=== PATIENT | male | born 1960 | race Caucasian/White ===

== ENCOUNTER 2025-04-18 14:09 | Outpatient (AMB) | payer BC, SELFPAY ==
--- NOTE | 2025-04-18 14:44 | MHC.AMNUTRGE ---
VS Expanded 04/18/25 14:49 04/29/25 14:57 Height 5 ft 10 in 5 ft 10 in Weight 263 lb 263 lb BMI 37.7 37.7 Intake Visit Reasons: T2DM Nutrition Presentation Details: Pt presents for MNT for T2DM Patient reports working on diet modifications for multiple years Patient reports he had gastric bypass surgery around 2001. Patient was 360 lb prior to surgery and with surgery patient reached 180 lb, then gradually regained weight and maintained at 235lb for almost 7 years and now is restarting to gain the weight again to current weight at 263 lb Patient wants to resume working on diet modifications Food frequency Fruits 0-1 a day Dairy 3-4 a day Vegetables for a day Fish 0 per week Beverages: Water, milk, juices Empty calorie foods: + Patient acknowledges increasing on empty calorie foods and also larger portion sizes in addition to keeping sedentary AHW-Elmjrrt-Dt.Jeor Equation Height: 5 ft 10 in Weight: 263 lb Resting Metabolic Rate: 1998.04 Calculated Activity Level: Sedentary Calories Needed to Maintain Weight: 2397.65 Diagnosis Nutrition problem #1: overweight/obesity As related to (etiology) #1: excess energy intake As evidenced by (sign/symptom) #1: high BMI (37.7 BMI in March 2025) Assessment & Plan Assessment & Plan (1) Obesity (BMI 30-39.9): Code(s): E66.9 - Obesity, unspecified Category: Medical Plan: current wt: 120 kg ( 04/23 ) est kcal needs as per MSJ: 2400 est protein needs as per 1 g/kg BW: 120 est fluid needs as per 30 ml/kg BW: 3600 Recommended fiber > 12 g /day and gradually increase up to 25-28 g /day or as tolerated Nutrition topics discussed : Reviewed (R), Pt verbalized understanding (V) , not applicable (N/A) R, : Healthy Plate Method Concept: R, : Carbohydrates: food sources of carbohydrates, relationship of carbohydrates to blood glucose, fatty liver GI health. Recommended total amount of carbohydrates per meals and snack. Differences between simple carbohydrates and complex carbohydrates R, : Lean protein foods including vegan , vegetarian sources of protein. Benefits of protein (including but not limited to healing, nutritional value , benefits in weight loss, glucose control R, : Fats : Source of fats, benefits of fats. Difference between saturated and unsaturated fats. Saturated fats and its contribution to inflammation R, : Fiber: food sources and role of fiber in the diet (including but not limited to its role as a prebiotic, benefits in constipation, role in IBS , role in glucose control and cholesterol level) R, : Hydration: role of hydration and prevention of dehydration or over hydration. Foods and water content. R, V,A: Vitamins and Minerals in foods and supplements R, V, : Interpreting food labels, including serving size, macronutrients, vitamins, minerals, allergens, ingredient list , % daily value Patient Instructions: Reduce total carbohydrate to less than 60 g per meal, 3 meals a day and 0-20 g of carb as a snack up to 3 snacks a day if needed Keep hydrated by choosing low sugar beverages, read food labels Engage in physical activity at least 30 minutes 3 times a week unless otherwise specified by your Dr. Coding Level of Care Code Nutr Indiv Intake (47207) Diagnoses Obesity (BMI 30-39.9) E66.9 Time Spent (min) 30
[2025-04-18 14:49] VITALS: BMI 37.7
--- OUTSIDE RECORDS SUMMARY | 2025-04-18 19:34 | XMS_ITS | Encounter Summary ---
Author Organization [facility] Address [address] [place] [address] Care Team Providers Care Willow Machine Operator Name Role Phone Vinicio Greenfield MD Primary Care Provider [phone] Encounter Details Date Type Department Care Team (Late Contact Info) Description 03/04/2025 Results Follow-Up Internal Medicine - [address] [phone] Nat Hanna MA Social History Tobacco Use Types Packs/Day Years Used Date Smoking Tobacco: Never Smokeless Tobacco: Never Alcohol Use Standard Drinks/Week Comments Yes 0 (1 standard drink = 0.6 oz pur e alcohol) Social use Sex and Gender Information Value Date Recorded Sex Assigned at Not on file Legal Sex Male 9:50 PM EST Gender Identity Not on file Sexual Orientation Not on file documented as of this encounter Plan of Treatment Upcoming Encounters Date Type Department Care Team (Late Contact Info) Description 05/31/2025 12:30 PM EST Office Visit Gastroenterology - [address] [phone] Cris Hager MD [address] [address] documented as of this encounter Visit Diagnoses Not on filedocumented in this encounter Care Teams Willow Machine Operator Relationship Specialty Start Date End Date Vinicio Greenfield MD [address] [place] [phone] PCP - General Internal Medicine 12/09/14 documented as of this encounter
--- OUTSIDE RECORDS SUMMARY | 2025-04-18 19:34 | XMS_ITS ---
Author Name [facility] Organization Unknown Care Team Organization Name Specialty Phone Email Start Date End Da te [facility] Vinicio Greenfield Primary Care 04/06/2022 01/16/20 24
--- OUTSIDE RECORDS SUMMARY | 2025-04-18 19:34 | XMS_ITS | Clinical Summary ---
Author Organization [address] Address [address] [place] [phone] Phone Care Team Providers Care Robot Programmer Name Role Phone Vinicio Greenfield MD Primary Care Provider [phone] Allergies Active Allergy Reactions Criticality Noted Date Comments Aspirin Wheezing 01/01/2015 Other Reaction(s): heart races and eyes swell shut tachycardia Medications cyanocobalamin (VITAMIN B-12) 500 mcg tablet Take 1 tablet (500 mcg total) by mouth 1 (one) time each day. Active blood-glucose meter kitIndications: Pre-diabetes FREESTYLE LITE METER Use daily or as directed for monitoring of diabetes. 1 each 5 09/19/19 26 Active glucose blood test strip Use daily or as instructed to check blood sugar 100 each 2 5 Active traZODone (DESYREL) 50 mg tabletIndicatio ns:Insomnia, unspecified type Take 1 tablet (50 mg total) by mouth at bedtime as needed for sleep. 90 tablet 5 Active traZODone (DESYREL) 50 mg tabletIndicatio ns:Insomnia, unspecified type Take 1 tablet (50 mg total) by mouth at bedtime as needed for sleep. 90 tablet 5 04/15/20 25 Discontin ued(Reord er) Active Problems Problem Noted Date Diagnosed Date Acute type 2 diabetes mellit us with manifestations (CMS/HCC V24, CMS/[facility] V28) 01/22/2025 DVT (deep venous thrombosis) ([facility] V24, CMS/H CC V28) 05/01/2024 COVID 06/11/2022 Irregular heartbeat 04/30/2022 Aortic dilatation ([facility] V24) 04/30/2022 Ventricular bigeminy 04/30/2022 Bradycardia 04/28/2022 Overview (03/26/2024): W/ High [place] Ventricular Block SHADY (obstructive sleep apnea) 04/26/2022 Overview (03/26/2024): Home study 03/2022 Insomnia 11/05/2020 Uncomplicated alcohol dependence ([facility] V24, [facility] V28) 12/05/2018 Recurrent major depressive disorder ([facility] V24 ) 04/06/2018 Morbid obesity due to excess calories ([facility] V24, [facility] V28) 11/02/2016 [place] [place] [facility] [place] Incisional hernia, without obstruction or gangre ne 09/22/2015 Renal mass, left 07/07/2015 Cirrhosis ([facility] V24, [facility] V28) 05/26/2015 Lipoma of neck 05/26/2015 Vitamin B 12 deficiency 05/26/2015 Enlarged prostate 05/26/2015 Hernia of abdominal cavity 01/01/2015 Esophageal reflux 01/01/2015 Resolved Problems Problem Noted Date Diagnosed Date Resolved Date Pre-diabetes 01/01/2015 01/22/2025 Encounters Date Type Department Care Team Description 03/04/2025 Results Follow-Up Internal [facility] [address] [facility] [place] [phone] Nat Hanna [place] 02/08/2025 Telephone Internal Medicine - [address] [place] [phone] Seth Capone NP 01/22/2025 2:00 PM EDT Office Visit Internal Medicine - [facility] [address] [place] [phone] Seth Capone NP Neuropathy (Primary Dx); Acute type 2 diabetes mellitus with manifestations [place] [place], [facility] V28); Hyperlipidemia, unspecified hyperlipidemia type; Hypertension, essential; Insomnia, unspecified type; Elevated liver enzymes; Low ferritin from Last 3 Months Immunizations Immunization Administration Dates Next Due Influenza Quadravalent, MDCK , 0.5ml, preservative free (Flucelvax) 6mo and older 03/29/2023,04/29/2021,03/17/2018 Influenza trivalent, 0.5mL, preservative free (Fluarix; FluLaval; Fluzone) ages 6mo and older (Afluria) 3 years and older 03/25/2020,04/01/2016 Moderna SARS-CoV-2 COVID-19, mRNA, LNP-S, preservative free 08/28/2020,07/31/2020 Pneumococcal polysaccharide 23 valent (Pneumovax 23) 2yo and older 05/17/2017 Tdap Tetanus diptheria acell ular pertussis (Boostrix; Adacel) 7yo and older 04/01/2016 Surgical History Surgery Date Site/Laterality Comments APPENDECTOMY PROCEDURE: WI APPENDEC INDICATED PURPOSE OTH MAJOR PX NOT SPX GASTRIC BYPASS PROCEDURE: GASTRIC BYPASS FOR OBESIT OTHER SURGICAL HISTORY PROCEDURE: WI CHOLECYSTOENTEROSTOMY DIRECT HERNIA REPAIR PROCEDURE: HISTORICAL HERNIA REPAIR/ING Medical History Medical History Date Comments Vitamin B 12 deficiency 05/26/2015 DX:Vitam in B 12 deficiency Anxiety and depression 05/26/2015 DX:Anxiet y and depression Enlarged prostate 05/26/2015 DX:Enlarged pr ostate Morbid obesity due to excess calories ([facility] V24, [facility] V28) 11/02/2016 DX:Morbid obesity due to ex cess calories (HCC) Diabetes mellitus ([facility] V 24, [facility] V28) Cirrhosis ([facility] V24, [facility] V28) Family History Medical History Relation Name Comments Other: Angina Aunt Briseyda Lung cancer Mother Lung cancer Mother's Brother Relation Name Status Comments Aunt Briseyda Brother Alive Father Mother Alive Mother's Brother Sister 1 Alive Sister 2 Alive Sister 3 Alive Social History Tobacco Use Types Packs/Day Years Used Date Smoking Tobacco: Never Smokeless Tobacco: Never Alcohol Use Standard Drinks/Week Comments Yes 0 (1 standard drink = 0.6 oz pur e alcohol) Social use Sex and Gender Information Value Date Recorded Sex Assigned at Not on file Legal Sex Male 9:50 PM EST Gender Identity Not on file Sexual Orientation Not on file Obstetrics History Last Filed Vital Signs Vital Sign Reading Time Taken Comments Blood Pressure 144/84 01/22/2025 2:04 PM EDT Pulse 74 01/22/2025 2:04 PM EDT Temperature 36.9 C (98.5 F) 10/03/2024 3:40 PM EDT Respiratory Rate 16 05/01/2024 1:26 PM EST Oxygen Saturation 98% 10/03/2024 3:40 PM EDT Inhaled Oxygen Concentration - - Weight 121 kg (267 lb) 01/22/2025 2:04 PM EDT Height 177.8 cm (5' 10 ) 01/22/2025 2:04 PM EDT Body Mass Index 38.31 01/22/2025 2:04 PM EDT Plan of Treatment Upcoming Encounters Date Type Department Care Team (Late st Contact Info) Description 05/31/2025 12:30 PM EST Office Visit Gastroenterology - [address] [facility] [address] [place] [phone] Cris Hager MD [address] [facility] [address] [place] [address] Health Maintenance Due Date Last Done Comments Diabetes: Annual Foot Exam 1972 Diabetes: Annual Retina Eye Exam 1972 Hepatitis A Vaccines (1 of 2 - Risk 2-dose series) 1981 Zoster Vaccines (1 of 2) 2012 Pneumococcal Vaccine: 50+ Years (2 of 2 - PCV) 05/17/2018 05/17/2017 HIV Screening 05/08/2022 Social Influencers of Health Screening 05/08/2022 Depression Screening 05/30/2024 01/10/2024 Diabetes: Annual Urine Albumin-Creatinine Ratio (uACR) 01/22/2025 COVID-19 Vaccine ( season) 2025 04/29/2021, 08/28/2020, 07/31/2020 Influenza Vaccine (#1) 2025 3, 04/29/2021, 03/25/2020, Additional history exists Diabetes: Blood Sugar Control Test (HGBA1C) 07/25/2025 01/22/2025, 09/17/2024, 01/10/2024 Diabetes: Annual GFR (Glomerular Filtration Rate) 01/22/2026 01/22/2025, 09/17/2024, 01/10/2024 Hypertension/CHF/CAD Annual BMP Blood Test 01/22/2026 01/22/2025, 09/17/2024, 01/10/2024 DTaP,Tdap,and Td Vaccines (2 - Td or Tdap) 04/01/2026 04/01/2016 Colorectal Cancer Screening: Colonoscopy 09/01/2027 08/31/2022 Cholesterol Screening (Lipid Panel) 01/22/2030 01/22/2025, 09/17/2024, 08/17/2023 RSV Immunization Adult Patients (1 - 1-dose 75+ series) 2037 Hepatitis C Screening Completed 01/31/2025, 016 HIB Vaccines Aged Out No longer eligi ble based on patient's age to complete this topic HPV Vaccines Aged Out No longer eligi ble based on patient's age to complete this topic Hepatitis B Vaccines Aged Out No long er eligible based on patient's age to complete this topic IPV Vaccines Aged Out No longer eligi ble based on patient's age to complete this topic MMR Vaccines Aged Out No longer eligi ble based on patient's age to complete this topic Meningococcal ACWY Vaccine Aged Out N o longer eligible based on patient's age to complete this topic Meningococcal B Vaccine Aged Out No l onger eligible based on patient's age to complete this topic RSV Immunization Patients Under 20 months Aged Out No longer eligible based on patient's age to complete this topic Varicella Vaccines Aged Out No longer eligible based on patient's age to complete this topic Procedures Procedure Name Priority Date/Time Associated Diagnosis Comments HEPATIC FUNCTION PANEL Routine 03/04/2025 10:34 AM EDT Elevated liver enzymes CBC WITH AUTO DIFFERENTIAL Routine 02/07/2025 4:31 PM EDT Low ferritin CBC AND DIFFERENTIAL Routine 02/07/2025 4:31 PM EDT Low ferritin IRON AND TIBC Routine 02/07/2025 4:31 PM EDT Low ferritin FOLATE Routine 02/07/2025 4:31 PM EDT Low ferritin HEPATITIS PANEL, ACUTE WITH REFLEX TO CONFIRMATION Routine 01/31/2025 9:38 AM EDT Elevated liver enzymes FERRITIN Routine 01/31/2025 9:38 AM EDT Elevated liver enzymes VITAMIN B12 Routine 01/22/2025 3:01 PM EDT Neuropathy HEMOGLOBIN A1C Routine 01/22/2025 3:01 PM EDT Neuropathy Acute type 2 diabetes mellitus with manifestations (CMS/HCC V24, CMS/HCC V28) COMPREHENSIVE METABOLIC PANEL Routine 01/22/2025 3:01 PM EDT Neuropathy LIPID PANEL WITH REFLEX TO DIRECT LDL Routine 01/22/2025 3:01 PM EDT Hyperlipidemia, unspecified hyperlipidemia type THYROID STIMULATING HORMONE WITH REFLEX TO FREE T4 AND FREE T3 Routine 01/22/2025 3:01 PM EDT Neuropathy BORRELIA BURGDORFERI ANTIBODY Routine 01/22/2025 3:01 PM EDT Potential exposure to STD TREPONEMA PALLIDUM ANTIBODY WITH REFLEX TO RPR AND PARTICLE AGGLUTINATION Routine 01/22/2025 3:01 PM EDT Potential exposure to STD HM DEPRESSION SCREENING Routine 01/10/2024 HM COLONOSCOPY Routine 08/31/2022 from Last 3 Months or Most Recently Relevant to Health Maintenance Results * (ABNORMAL) Hepatic function panel (03/04/2025 10:34 AM EDT) Total Protein 7.0 6.0 - 8.0 g/dL LAB CHEMISTRY METHOD 03/04/2025 2:39 PM EDT [facility] Albumin 4.2 3.2 - 5.0 g/dL LAB CHEMISTRY METHOD 03/04/2025 2:39 PM EDT [facility] Total Bilirubin 0.8 0.0 - 1.4 mg/dL LAB CHEMISTRY METHOD 03/04/2025 2:39 PM EDT [facility] Bilirubin, Direct 0.3 0.0 - 0.3 mg/dL LAB CHEMISTRY METHOD 03/04/2025 2:39 PM EDT [facility] Bilirubin, Indirect 0.5 0.0 - 1.1 mg/dL LAB CHEMISTRY METHOD 03/04/2025 2:39 PM EDT [facility] ALT (SGPT) 70(H) 10 - 60 unit/L LAB CHEMISTRY METHOD 03/04/2025 2:39 PM [facility] AST (SGOT) 40 10 - 42 unit/L LAB CHEMISTRY METHOD 03/04/2025 2:39 PM T [facility] Alkaline Phosphatase 64 42 - 121 unit/L LAB CHEMISTRY METHOD 03/04/2025 2:39 PM T [facility] Blood Venous blood specimen / Unknown Venipuncture / Unknown 03/04/2025 10:34 AM EDT 03/04/2025 10:36 AM EDT us Seth Capone AUTOMOTIVE DESIGNER LAB BLOOD ORDERABLES Final Res ult [facility] [address] [place] [address], * (ABNORMAL) CBC auto differential (02/07/2025 4:31 PM EDT) WBC 3.4(L) 4.8 - 10.8 K/mcL LAB HEMETOLOGY METHOD 02/07/2025 7:26 PM EDT [facility] RBC 4.40(L) 4.50 - 5.50 M/mcL LAB HEMETOLOGY [facility]/07[facility] Hemoglobin 12.4(L) 13.5 - 17.5 g/dL LAB HEMETOLOGY METHOD 02/07/2025 7[facility] Hematocrit 38.1(L) 42.0 - 54.0 % LAB HEMETOLOGY METHOD 02/07/2025 7[facility] MCV 87.0 79.0 - 98.0 FL LAB HEMETOLOGY METHOD 02/07/2025 7:26 PM [facility] MCH 28.3 27.0 - 32.0 pcg LAB HEMETOLOGY METHOD 02/07/2025 7:26 PM [facility] MCHC 32.5 32.0 - 37.0 g/dL LAB HEMETOLOGY METHOD 02/07/2025 7:26 PM [facility] RDW 13.7 11.0 - 15.0 % LAB HEMETOLOGY METHOD 02/07/2025 7:26 PM [facility] Platelets 86(L) 130 - 400 K/mcL LAB HEMETOLOGY METHOD 02/07/2025 7:26 PM [facility] Comment:reviewed by slide MPV 11.2(H) 7.0 - 11.0 FL LAB HEMETOLOGY METHOD 02/07/2025 7[facility] NRBC 0.0 <1.0 % LAB HEMETOLOGY METHOD 02/07/2025 7[facility] NRBC Absolute 0.00 <0.10 K/mcL LAB HEMETOLOGY METHOD 02/07/2025 7:26 PM [facility] Neutrophils Relative 55.9 % LAB HEMETOLOGY METHOD 02/07/2025 7[facility] Lymphocytes Relative 30.3 % LAB HEMETOLOGY METHOD 02/07/2025 7:26 PM EDT [facility] Monocytes Relative 9.7 % LAB HEMETOLOGY METHOD 02/07/2025 7:26 PM [facility] Eosinophils Relative 3.5 % LAB HEMETOLOGY METHOD 02/07/2025 7:26 PM EDT [facility] Basophils Relative 0.3 % LAB HEMETOLOGY METHOD 02/07[facility]2025 7[facility] Immature Granulocytes Relative 0.3 % LAB HEMETOLOGY METHOD 02/07/2025 7:[facility] Neutrophils Absolute 1.90 1.50 - 7.00 K/mcL LAB HEMETOLOGY METHOD 02/07/2025 7:26 PM [facility] Lymphocytes Absolute 1.03 1.00 - 5.00 K/mcL LAB HEMETOLOGY METHOD 02/07/2025 7[facility] Monocytes Absolute 0.33 0.20 - 1.00 K/mcL LAB HEMETOLOGY METHOD 02/07/2025 7[facility] Eosinophils Absolute 0.12 0.00 - 0.50 K/mcL LAB HEMETOLOGY METHOD 02/07/2025 7:26 PM [facility] Basophils Absolute 0.01 0.00 - 0.20 K/mcL LAB HEMETOLOGY METHOD 02/07/2025 7:26 PM [facility] Immature Granulocytes Absolute 0.01 0.00 - 0.03 K/mcL LAB HEMETOLOGY METHOD 02/07/2025 7:26 PM [facility] Blood Venous blood specimen / Unknown Venipuncture / Unknown 02/07/2025 4:31 PM EDT 02/07/2025 4:31 PM EDT us Seth Jarihi AUTOMOTIVE DESIGNER LAB BLOOD ORDERABLES Final Res ult [facility] [address] [place] [address], [place] [phone] * (ABNORMAL) Iron and TIBC (02/07/2025 4:31 PM EDT) Iron 53 50 - 160 mcg/dL LAB CHEMISTRY METHOD 02/07/2025 6:59 PM EDT [facility] TIBC 447 250 - 450 mcg/dL LAB CHEMISTRY METHOD 02/07/2025 6:59 PM EDT [facility] Iron Saturation 12(L) 20 - 50 % LAB CHEMISTRY METHOD 02/07/2025 6:59 PM EDT [facility] Blood Venous blood specimen / Unknown Venipuncture / Unknown 02/07/2025 4:31 PM EDT 02/07/2025 4:31 PM EDT Seth Capone LAB BLOOD ORDERABLES Final Res ult Performing Organization Address City/[facility]/ZIP Co de Phone Number [facility] [address] [place] [address], [place] [phone] * (ABNORMAL) Folate (02/07/2025 4:31 PM EDT) Folate >20.0(H) 2.8 - 17.0 ng/ml LAB CHEMISTRY METHOD 02/07/2025 7:17 PM EDT [facility] Blood Venous blood specimen / Unknown Venipuncture / Unknown 02/07/2025 4:31 PM EDT 02/07/2025 4:31 PM EDT Seth Capone AUTOMOTIVE DESIGNER LAB BLOOD ORDERABLES Final Res ult [facility] [address] [place] [address], [place] [phone] * Hepatitis panel, acute with reflex to confirmation (01/31/2025 9:38 AM EDT) Pathologist [facility] Hepatitis B Surface Ag Negative Negative LAB CHEMISTRY METHOD 01/31/2025 5:20 PM EDT [facility] Hepatitis A Antibody IgM Negative Negative LAB CHEMISTRY METHOD 01/31/2025 5:20 PM EDT [facility] Hep B Core IgM Negative Negative LAB CHEMISTRY METHOD 01/31/2025 5:20 PM EDT [facility] Hepatitis C Antibody Negative Negative LAB CHEMISTRY METHOD 01/31/2025 5:20 PM EDT [facility] Blood Venous blood specimen / Unknown Venipuncture / Unknown 01/31/2025 9:38 AM EDT 01/31/2025 9:38 AM EDT us Seth Capone AUTOMOTIVE DESIGNER LAB BLOOD ORDERABLES Final Res ult [facility] [address] [place] [address], [place] [phone] * (ABNORMAL) Ferritin (01/31/2025 9:38 AM EDT) [facility] Ferritin 19(L) 26 - 388 ng/mL LAB CHEMISTRY METHOD 01/31/2025 3:12 PM EDT [facility] Blood Venous blood specimen / Unknown Venipuncture / Unknown 01/31/2025 9:38 AM EDT 01/31/2025 9:38 AM EDT us Seth Capone AUTOMOTIVE DESIGNER LAB BLOOD ORDERABLES Final Res ult [facility] [address] [place] [address], [place] [phone] * Treponema pallidum antibody with reflex to RPR and particle agglutination (01/22/2025 3:01 PM EDT) Pathologist [facility] T. Pallidum Antibodies Negative Negative LAB CHEMISTRY METHOD 01/22/2025 8:52 PM EDT [facility] Blood Venous blood specimen / Unknown Venipuncture / Unknown 01/22/2025 3:01 PM EDT 01/22/2025 3:01 PM EDT us Seth Capone AUTOMOTIVE DESIGNER LAB BLOOD ORDERABLES Final Res ult Performing Organization Address [facility]/ZIP Co de Phone Number [facility] [address] [place] [address], [place] [phone] * Thyroid stimulating hormone with reflex to free t4 and free t3 (01/22/2025 3:01 PM EDT) [facility] TSH 2.49 0.40 - 4.00 mcIU/mL LAB CHEMISTRY METHOD 01/22/2025 8:42 PM EDT [facility] Blood Venous blood specimen / Unknown Venipuncture / Unknown 01/22/2025 3:01 PM EDT 01/22/2025 3:01 PM EDT us Seth Capone NP LAB BLOOD ORDERABLES Final Res ult Performing Organization Address [facility]/ZIP Co de Phone Number [facility] [address] [place] [address], [place] [phone] * (ABNORMAL) Lipid panel with reflex to direct LDL (01/22/2025 3:01 PM EDT) [facility] Cholesterol 167 0 - 200 mg/dL LAB CHEMISTRY METHOD 01/22/2025 8:30 PM EDT [facility] Triglycerides 190(H) 0 - 150 mg/dL LAB CHEMISTRY METHOD 01/22/2025 8:30 PM EDT [facility] HDL 44 >=40 mg/dL LAB CHEMISTRY METHOD 01/22/2025 8:30 PM EDT [facility] LDL Calculated 85 0 - 100 mg/dL LAB CHEMISTRY METHOD 01/22/2025 8:30 PM EDT [facility] Comment:Estimated LDL Calcul ated using equation: Total cholesterol - HDL cholesterol - (Triglycerides/5) VLDL Cholesterol Richie 38 mg/dL LAB CHEMISTRY METHOD 01/22/2025 8:30 PM EDT [facility] Non HDL Chol. (LDL+VLDL) 123 <145 mg/dL LAB CHEMISTRY METHOD 01/22/2025 8:30 PM EDT [facility] Chol/HDL Ratio 3.8 0.0 - 4.4 LAB CHEMISTRY METHOD 01/22/2025 8:30 PM EDT [facility] Blood Venous blood specimen / Unknown Venipuncture / Unknown 01/22/2025 3:01 PM EDT 01/22/2025 3:01 PM EDT us Seth Capone NP LAB BLOOD ORDERABLES Final Res ult Performing Organization Address City/[facility]/ZIP Il de Phone Number [facility] [address] [place] [address], * Borrelia burgdorferi antibody (01/22/2025 3:01 PM EDT) Lyme Ab Negative Negative LAB CHEMISTRY METHOD 01/23/2025 12:01 PM EDT [facility] Comment: No laboratory evidence of infection with B. burgdorferi (Lyme disease). Negative results may occur in patients recently infected (<=14 days) with B. burgdorferi. If recent infection is suspected, repeat testing on a new sample collected in 7- 14 days is recommended. Blood Venous blood specimen / Unknown Venipuncture / Unknown 01/22/2025 3:01 PM EDT 01/22/2025 3:01 PM EDT Seth Capone NP LAB BLOOD ORDERABLES Final Res ult [facility] [address] [place] [address], [place] [phone] * (ABNORMAL) Hemoglobin A1c (01/22/2025 3:01 PM EDT) [facility] Hemoglobin A1C 7.1(H) <6.5 % LAB CHEMISTRY METHOD 01/22/2025 9:24 PM EDT [facility] Mean Bld Glu Estim. 157 mg/dL LAB CHEMISTRY METHOD 01/22/2025 9:24 PM EDT [facility] Blood Venous blood specimen / Unknown Venipuncture / Unknown 01/22/2025 3:01 PM EDT 01/22/2025 3:01 PM EDT us Seth Capone NP LAB BLOOD ORDERABLES Final Res ult Performing Organization Address [facility]/ZIP Co de Phone Number [facility] [address] [place] [address], [place] [phone] * Vitamin B12 (01/22/2025 3:01 PM EDT) [facility] Vitamin B-12 373 250 - 900 pcg/mL LAB CHEMISTRY METHOD 01/22/2025 8:30 PM EDT [facility] Blood Venous blood specimen / Unknown Venipuncture / Unknown 01/22/2025 3:01 PM EDT 01/22/2025 3:01 PM EDT us Seth Capone NP LAB BLOOD ORDERABLES Final Res ult Performing Organization Address City/[facility]/ZIP Co de Phone Number [facility] [address] [place] [address], [place] [phone] * (ABNORMAL) Comprehensive metabolic panel (01/22/2025 3:01 PM EDT) [facility] Sodium 138 133 - 145 mmol/L LAB CHEMISTRY METHOD 01/22/2025 8:30 PM [facility] Potassium 4.2 3.5 - 5.5 mmol/L LAB CHEMISTRY METHOD 01/22/2025 8:30 PM [facility] Chloride 105 96 - 110 mmol/L LAB CHEMISTRY METHOD 01/22/2025 8:30 PM [facility] CO2 26 21 - 32 mmol/L LAB CHEMISTRY METHOD 01/22/2025 8:30 PM [facility] Anion Gap 7 3 - 11 LAB CHEMISTRY METHOD 01/22/2025 8:30 PM [facility] Glucose 121(H) 70 - 100 mg/dL LAB CHEMISTRY METHOD 01/22/2025 8:30 PM [facility] BUN 11 5 - 25 mg/dL LAB CHEMISTRY METHOD 01/22/2025 8:30 PM [facility] Creatinine 0.92 0.70 - 1.30 mg/dL LAB CHEMISTRY METHOD 01/22/2025 8:30 PM [facility] eGFR 94 >=60 mL/min/1. 73m2 LAB CHEMISTRY METHOD 01/22/2025 8:30 PM [facility] Comment:Calculation based on the Chronic Kidney Disease Epidemiology Collaboration (CKD-EPI) equation refit without adjustment for race. BUN/Creatinine Ratio 12.0 LAB CHEMISTRY METHOD 01/22/2025 8:30 PM [facility] Calcium 9.3 8.5 - 10.5 mg/dL LAB CHEMISTRY METHOD 01/22/2025 8:30 PM [facility] AST (SGOT) 57(H) 10 - 42 unit/L LAB CHEMISTRY METHOD 01/22/2025 8:30 PM [facility] ALT (SGPT) 68(H) 10 - 60 unit/L LAB CHEMISTRY METHOD 01/22/2025 8:30 PM [facility] Alkaline Phosphatase 72 42 - 121 unit/L LAB CHEMISTRY METHOD 01/22/2025 8:30 PM EDT [facility] Total Protein 7.4 6.0 - 8.0 g/dL LAB CHEMISTRY METHOD 01/22/2025 8:30 PM EDT [facility] Albumin 4.2 3.2 - 5.0 g/dL LAB CHEMISTRY METHOD 01/22/2025 8:30 PM EDT [facility] Total Bilirubin 0.7 0.0 - 1.4 mg/dL LAB CHEMISTRY METHOD 01/22/2025 8:30 PM EDT [facility] Blood Venous blood specimen / Unknown Venipuncture / Unknown 01/22/2025 3:01 PM EDT 01/22/2025 3:01 PM EDT Seth Capone AUTOMOTIVE DESIGNER LAB BLOOD ORDERABLES Final Res ult [facility] [address] [place] [address], * Depression Screening (01/10/2024) Depression Screening Abstracted Historical Provider HEALTH MAINTENANCE Final Result * Colonoscopy (08/31/2022) Colonoscopy No Interpretation , Abstracted Anatomical Region Laterality Modality Other Historical Provider HEALTH MAINTENANCE Final Result from Last 3 Months or Most Recently Relevant to Health Maintenance Insurance Advance Directives Documents on File Type Date Recorded Patient Insole [place]asper Expl anation Health Care Decision (hx) 09/16/2015 AD [employer] DIRECTIVE Health Care Decision (hx) 09/16/2015 AD S[employer]AM[employer]IA DIRECTIVE Health Care Decision (hx) 09/16/2015 AD SANTAMARIA DIRECTIVE Health Care Decision (hx) 09/16/2015 AD SANTAMARIA DIRECTIVE Health Care Decision (hx) 09/16/2015 AD SANTAMARIA DIRECTIVE Health Care Decision (hx) 09/16/2015 AD SANTAMARIA DIRECTIVE Health Care Decision (hx) 09/12/2015 AD SANTAMARIA DIRECTIVE Health Care Decision (hx) 09/12/2015 AD SANTAMARIA DIRECTIVE Health Care Decision (hx) 09/12/2015 AD SANTAMARIA DIRECTIVE Care Teams Robot Programmer Relationship Specialty Start Date End Date Vinicio Greenfield MD [address] [place] [id number] PCP - General Internal Medicine 12/09/14
[2025-04-29 14:57] VITALS: BMI 37.7
== END 2025-04-18 15:27 | disposition home or self-care (01) ==
PROVIDERS: PCP Internal Medicine; Visit Provider Dietitian, Registered
DX: E66.9 Obesity, unspecified (principal)

== ENCOUNTER → 2025-04-18 14:09 | Outpatient (BNVA) | payer BC, SELFPAY | PROVIDERS: PCP Internal Medicine; Visit Provider Dietitian, Registered | DX: Z71.3 Dietary counseling and surveillance (principal); E66.9 Obesity, unspecified | CPT/HCPCS: 97802 ==